=== PATIENT | male | born 1960 | race Caucasian/White ===

== ENCOUNTER 2018-04-20 12:02 | Inpatient (IN) | payer BC ==
[2018-04-20] MEDS ORDERED: ASPIRIN 81 MG PO STA (12:42)
[2018-04-20] MEDS ORDERED: SODIUM CHLORIDE 0.9% 1,000 ML IV STA (12:42)
--- NOTE | 2018-04-20 12:48 | ED ---
General Adult HPI - General Chief complaint: Arrhythmia/Palpitations Stated complaint: A-Fib Time Seen by Provider: 04/20/18 12:34 Source: patient, RN notes reviewed Mode of arrival: wheelchair Limitations: no limitations - History of Present Illness Initial comments: Patient is a pleasant 57-year-old male presenting to the emergency Department with limitations. Patient does have a history of similar symptoms previously associated with atrial fibrillation. Patient states it is been several years since he has had atrial fibrillation. Patient does have previous ablation. Patient is on antihypertensive medications however is not on any anticoagulation. No chest discomfort. Patient has had associated lightheadedness. - Related Data Home Medications Medication Instructions Recorded Confirmed Citalopram Hydrobromide 20 mg PO DAILY 04/20/18 04/20/18 [Citalopram HBr] Hydrochlorothiazide 12.5 mg PO DAILY 04/20/18 04/20/18 Meloxicam 15 mg PO DAILY 04/20/18 04/20/18 amLODIPine BESYLATE/BENAZEPRIL 1 cap PO DAILY 04/20/18 04/20/18 [amLODIPine BESYLATE/BENAZEPRIL 5-10 mg] Allergies Allergy/AdvReac Type Severity Reaction Status Date / Time No Known Allergies Allergy Verified 04/20/18 12:39 Review of Systems ROS Statement: Those systems with pertinent positive or pertinent negative responses have been documented in the HPI. ROS Other: All systems not noted in ROS Statement are negative. Constitutional: Denies: fever Eyes: Denies: eye pain ENT: Denies: ear pain Respiratory: Denies: cough Cardiovascular: Reports: palpitations. Denies: chest pain Endocrine: Denies: fatigue Gastrointestinal: Denies: abdominal pain Genitourinary: Denies: dysuria Musculoskeletal: Denies: back pain Skin: Denies: rash Neurological: Denies: weakness Past Medical History Past Medical History: Atrial Fibrillation, Hypertension History of Any Multi-Drug Resistant Organisms: None Reported Past Surgical History: Appendectomy, Heart Catheterization Additional Past Surgical History / Comment(s): dami knee, right shoulder, left ankle Past Psychological History: No Psychological Hx Reported Smoking Status: Never smoker Past Alcohol Use History: Occasional Past Drug Use History: None Reported General Exam Limitations: no limitations General appearance: alert, in no apparent distress Head exam: Present: atraumatic Eye exam: Present: normal appearance, PERRL ENT exam: Present: normal oropharynx Neck exam: Present: normal inspection Respiratory exam: Present: normal lung sounds bilaterally Cardiovascular Exam: Present: irregular rhythm Expanded Peripheral pulses: 2+: Radial (R), Radial (L), Dorsalis Pedis (R), Dorsalis Pedis (L) GI/Abdominal exam: Present: soft. Absent: tenderness Extremities exam: Present: normal inspection. Absent: pedal edema, calf tenderness Neurological exam: Present: alert Psychiatric exam: Present: normal affect, normal mood Skin exam: Present: normal color Course Vital Signs 04/20/18 04/20/18 04/20/18 12:09 12:45 13:44 Temperature 98.1 F Pulse Rate 85 103 H 80 Respiratory 18 18 18 Rate Blood Pressure 103/54 125/70 110/65 O2 Sat by Pulse 96 98 99 Oximetry EKG Findings - EKG Comments: EKG Findings:: A. fib with RVR, rate 107. QRS 86. QT 292. QTC 39. Normal axis. Normal QRS. No acute ST change. Medical Decision Making - Medical Decision Making Patient reevaluated and resting comfortably in bed. Patient does feel somewhat better. Heart rate has improved to 85 however remains in atrial fibrillation. Case was discussed in detail with Dr. Gallo, covering for Dr. Montoya, who will admit for Dr. Ramirez. - Lab Data Result diagrams: 04/20/18 12:40 04/20/18 12:40 Lab Results 04/20/18 04/20/18 04/20/18 Range/Units 12:40 12:40 12:40 WBC 14.1 H (3.8-10.6) k/uL RBC 4.83 (4.30-5.90) m/uL Hgb 15.3 (13.0-17.5) gm/dL Hct 44.1 (39.0-53.0) % MCV 91.2 (80.0-100.0) fL MCH 31.8 (25.0-35.0) pg MCHC 34.8 (31.0-37.0) g/dL RDW 13.0 (11.5-15.5) % Plt Count 240 (150-450) k/uL Neutrophils % 81 % Lymphocytes % 12 % Monocytes % 5 % Eosinophils % 1 % Basophils % 0 % Neutrophils # 11.3 H (1.3-7.7) k/uL Lymphocytes # 1.6 (1.0-4.8) k/uL Monocytes # 0.8 (0-1.0) k/uL Eosinophils # 0.1 (0-0.7) k/uL Basophils # 0.1 (0-0.2) k/uL PT (9.0-12.0) sec INR (<1.2) APTT (22.0-30.0) sec Sodium 138 (137-145) mmol/L Potassium 5.1 (3.5-5.1) mmol/L Chloride 107 (98-107) mmol/L Carbon Dioxide 20 L (22-30) mmol/L Anion Gap 11 mmol/L BUN 28 H (9-20) mg/dL Creatinine 1.28 H (0.66-1.25) mg/dL Est GFR (CKD-EPI)AfAm 72 (>60 ml/min/1.73 sqM) Est GFR (CKD-EPI)NonAf 63 (>60 ml/min/1.73 sqM) Glucose 94 (74-99) mg/dL Calcium 9.9 (8.4-10.2) mg/dL Magnesium 1.8 (1.6-2.3) mg/dL Total Bilirubin 0.6 (0.2-1.3) mg/dL AST 24 (17-59) U/L ALT 32 (21-72) U/L Alkaline Phosphatase 68 (38-126) U/L Total Creatine Kinase 41 L (55-170) U/L CK-MB (CK-2) 1.0 (0.0-2.4) ng/mL CK-MB (CK-2) Rel Index 2.4 Troponin I 0.017 (0.000-0.034) ng/mL Total Protein 7.2 (6.3-8.2) g/dL Albumin 4.5 (3.5-5.0) g/dL TSH 3.120 (0.465-4.680) mIU/L 04/20/18 Range/Units 12:40 WBC (3.8-10.6) k/uL RBC (4.30-5.90) m/uL Hgb (13.0-17.5) gm/dL Hct (39.0-53.0) % MCV (80.0-100.0) fL MCH (25.0-35.0) pg MCHC (31.0-37.0) g/dL RDW (11.5-15.5) % Plt Count (150-450) k/uL Neutrophils % % Lymphocytes % % Monocytes % % Eosinophils % % Basophils % % Neutrophils # (1.3-7.7) k/uL Lymphocytes # (1.0-4.8) k/uL Monocytes # (0-1.0) k/uL Eosinophils # (0-0.7) k/uL Basophils # (0-0.2) k/uL PT 10.6 (9.0-12.0) sec INR 1.1 (<1.2) APTT 22.1 (22.0-30.0) sec Sodium (137-145) mmol/L Potassium (3.5-5.1) mmol/L Chloride (98-107) mmol/L Carbon Dioxide (22-30) mmol/L Anion Gap mmol/L BUN (9-20) mg/dL Creatinine (0.66-1.25) mg/dL Est GFR (CKD-EPI)AfAm (>60 ml/min/1.73 sqM) Est GFR (CKD-EPI)NonAf (>60 ml/min/1.73 sqM) Glucose (74-99) mg/dL Calcium (8.4-10.2) mg/dL Magnesium (1.6-2.3) mg/dL Total Bilirubin (0.2-1.3) mg/dL AST (17-59) U/L ALT (21-72) U/L Alkaline Phosphatase (38-126) U/L Total Creatine Kinase (55-170) U/L CK-MB (CK-2) (0.0-2.4) ng/mL CK-MB (CK-2) Rel Index Troponin I (0.000-0.034) ng/mL Total Protein (6.3-8.2) g/dL Albumin (3.5-5.0) g/dL TSH (0.465-4.680) mIU/L - Radiology Data Radiology results: image reviewed (Two-view chest x-ray shows some right paraTracheal soft tissue prominence.) Critical Care Time Critical Care Time: Yes Total Critical Care Time: 32 Disposition Clinical Impression: Atrial fibrillation with RVR Disposition: ADMITTED IP TO THIS HOSP Is patient prescribed a controlled substance at d/c from ED?: No Referrals: Angel Ramirez MD [Primary Care Provider] - 1-2 days Decision Time: 14:23
[2018-04-20 13:02] LABS: Basophils # (A) 0.1 k/uL (0-0.2); Basophils % (A) 0 %; Eosinophils # (A) 0.1 k/uL (0-0.7); Eosinophils % (A) 1 %; HCT 44.1 % (39.0-53.0); HGB 15.3 gm/dL (13.0-17.5); Lymphocytes # (A) 1.6 k/uL (1.0-4.8); Lymphocytes % (A) 12 %; MCH 31.8 pg (25.0-35.0); MCHC 34.8 g/dL (31.0-37.0); MCV 91.2 fL (80.0-100.0); Mean Platelet Volume 7.8; Monocytes # (A) 0.8 k/uL (0-1.0); Monocytes % (A) 5 %; Neutrophils # (A) 11.3 k/uL (1.3-7.7); Neutrophils % (A) 81 %; Platelet Count 240 k/uL (150-450); RBC 4.83 m/uL (4.30-5.90); WBC 14.1 k/uL (3.8-10.6)
[2018-04-20] MEDS: DILTIAZEM 50 MG in SODIUM CHLORIDE 0.9% 40 ML IV SCH ×2 (13:04→22:51)
[2018-04-20 13:07] LABS: Albumin 4.5 g/dL (3.5-5.0); Calcium 9.9 mg/dL (8.4-10.2); Magnesium 1.8 mg/dL (1.6-2.3); Potassium 5.1 mmol/L (3.5-5.1); Total Bilirubin 0.6 mg/dL (0.2-1.3); Total Protein 7.2 g/dL (6.3-8.2)
[2018-04-20 13:14] LABS: INR 1.1 (<1.2); Partial Thromboplastin Time 22.1 sec (22.0-30.0); Prothrombin Time 10.6 sec (9.0-12.0)
--- NOTE | 2018-04-20 13:23 | XR ---
EXAMINATION TYPE: XR chest 1V portable DATE OF EXAM: 04/20/2018 Comparison: None Clinical History: 57-year-old male dysrhythmia Findings: Heart upper limits of normal in size. Probably accentuated due to low lung volumes. Vascular markings are crowded. There is some right paratracheal soft tissue prominence that could relate to ectatic va sculature. No consolidation or pleural effusion. Impression: 1. Right paratracheal soft tissue prominence could relate to ectatic vasculature. Contrast-enhanced C T if clinically indicated. 2. Otherwise, there are hypoventilatory changes without acute process.
[2018-04-20 13:33] LABS: Troponin I 0.017 ng/mL (0.000-0.034)
[2018-04-20] MEDS ORDERED: NITROGLYCERIN SL TABS 0.4 MG TAB SUBLINGUAL PRN (14:24)
[2018-04-20] MEDS ORDERED: HEPARIN SODIUM,PORCINE 5,000 UNIT/ML 1 ML VIAL IV ONE (14:24)
[2018-04-20] MEDS ORDERED: HEPARIN SODIUM,PORCINE 5,000 UNIT/ML 1 ML VIAL IV PRN (14:24)
[2018-04-20] MEDS ORDERED: HEPARIN SOD,PORK IN 0.45% NACL 25,000 UNIT in 0.45% NACL 1 500ML.BAG IV SCH (14:30)
--- NOTE | 2018-04-20 18:38 | HP ---
HISTORY AND PHYSICAL CHIEF COMPLAINT: Palpitation. HISTORY OF PRESENT ILLNESS: This 57-year-old gentleman with a past history of atrial fibrillation, hypertension, history of cardiac catheterization and ablation, being followed by Dr. Ramirez in the outpatient setting, is not feeling well over the past several days. The patient had palpitations. The patient apparently took a bike ride which usually resolves the issue, but because of increasing palpitations and wooziness and tiredness and weakness, the patient came to [facility] and found to be in atrial fibrillation with fast ventricular rate. Patient was started on IV Cardizem and IV heparin, admitted for further evaluation and treatment. There is no history of fever, rigors. No history of headache, loss of consciousness, seizures. PAST MEDICAL HISTORY: Atrial fibrillation, hypertension, appendectomy. MEDICATIONS PRIOR TO ADMISSION: Include: 1. Amlodipine. 2. Benazepril 5/10 one p.o. daily. 3. Meloxicam 50 mg daily. 4. Hydrochlorothiazide 12.5 mg daily. 5. Celexa 20 mg daily. ALLERGIES: None. FAMILY HISTORY: History of cardiac arrest in the family. SOCIAL HISTORY: No history of smoking. No history of alcohol intake. REVIEW OF SYSTEMS: ENT: No diminished hearing, diminished vision. CARDIOVASCULAR: As mentioned earlier. RESPIRATORY: No cough or hemoptysis. GI: No nausea or vomiting. : No dysuria. NERVOUS: No numbness or weakness. ALLERGY/IMMUNOLOGY: No asthma or hay fever. MUSCULOSKELETAL: As mentioned earlier. HEMATOLOGY/ONCOLOGY: No history of anemia. ENDOCRINE: No history of diabetes, hypothyroidism. CONSTITUTIONAL: As mentioned earlier. DERMATOLOGY: Negative. RHEUMATOLOGY: Negative. PSYCHIATRY: As mentioned earlier. PHYSICAL EXAMINATION: Alert and oriented x3. Pulse 89, blood pressure 116/53, respirations 20, temperature 98 degrees, pulse ox 99% on 2L. HEENT: Conjunctivae normal. Oral mucosa moist. NECK: No jugular venous distention. No carotid bruits. No lymph node enlargement. CARDIOVASCULAR: S1, S2 irregular. No S3, S4. RESPIRATORY: Breath sounds diminished in the bases. No rhonchi. No crackles. ABDOMEN: Soft, nontender. No mass palpable. LEGS: No edema. No swelling. NERVOUS SYSTEM: Higher functions as mentioned earlier. Moves all 4 limbs. No focal motor or sensory deficits. LYMPHATIC: No lymphadenopathy in neck or axillae. SKIN: No ulcer, rash or bleeding. LABS: WBC 14.1 and creatinine is 1.28. ASSESSMENT: 1. Atrial fibrillation with fast ventricular rate, paroxysmal atrial fibrillation. 2. Increased creatinine with possibly acute renal failure, mild. 3. Increased WBC. RECOMMENDATION AND DISCUSSION: In this 57-year-old gentleman who presented with multiple complex medical issues, at this time I recommend to continue current medical management and symptomatic treatment. I recommend to continue with a Cardizem drip as well as IV heparin, hydration, repeat labs. Recommend a 2D echo with a Doppler in the morning. Cardiology evaluation and we will also resume the home medications as well. Cautious IV hydration has been recommended. Guarded prognosis. Further recommendations to follow. MMODL / IJN: [id number] /
[2018-04-20 20:00] LABS: Creatine Kinase MB 0.8 ng/mL (0.0-2.4); Troponin I 0.017 ng/mL (0.000-0.034)
[2018-04-20] MEDS: SODIUM CHLORIDE 0.9% 1,000 ML IV SCH (22:50)
[2018-04-21 01:38] LABS: Creatine Kinase 27 U/L (55-170)
[2018-04-21 01:50] LABS: Creatine Kinase MB 0.7 ng/mL (0.0-2.4); Troponin I <0.012 ng/mL (0.000-0.034)
[2018-04-21 02:46] LABS: Basophils # (A) 0.1 k/uL (0-0.2); Basophils % (A) 1 %; Eosinophils # (A) 0.3 k/uL (0-0.7); Eosinophils % (A) 5 %; HCT 38.7 % (39.0-53.0); HGB 13.6 gm/dL (13.0-17.5); Lymphocytes # (A) 2.6 k/uL (1.0-4.8); Lymphocytes % (A) 39 %; MCH 32.9 pg (25.0-35.0); MCV 94.1 fL (80.0-100.0); Mean Platelet Volume 7.8; Monocytes # (A) 0.5 k/uL (0-1.0); Monocytes % (A) 7 %; Neutrophils % (A) 46 %; Platelet Count 178 k/uL (150-450); RBC 4.11 m/uL (4.30-5.90); RDW 13.3 % (11.5-15.5); WBC 6.6 k/uL (3.8-10.6)
[2018-04-21 04:10] LABS: Anion Gap 8 mmol/L; Blood Urea Nitrogen 33 mg/dL (9-20); Calcium 8.9 mg/dL (8.4-10.2); Carbon Dioxide 23 mmol/L (22-30); Chloride 106 mmol/L (98-107); Cholesterol 127 mg/dL (<200); Glucose 85 mg/dL (74-99); HDL Cholesterol 33 mg/dL (40-60); LDL Cholesterol,Calculated 76 mg/dL (0-99); Potassium 4.7 mmol/L (3.5-5.1); Sodium 137 mmol/L (137-145); Triglycerides 89 mg/dL (<150)
[2018-04-21] MEDS: CITALOPRAM HYDROBROMIDE 20 MG TAB PO SCH ×2 (07:53→07:56)
[2018-04-21] MEDS: SODIUM CHLORIDE 0.9% 1,000 ML IV SCH (07:59)
[2018-04-21 08:27] VITALS: PULSE 64
[2018-04-21] MEDS ORDERED: ASPIRIN 325 MG TAB PO SCH (09:00)
[2018-04-21] MEDS ORDERED: MELOXICAM 7.5 MG TAB PO SCH (09:00)
--- NOTE | 2018-04-21 09:07 | P.CRDCN ---
History of Present Illness Consult date: 04/21/18 Chief complaint: Palpitations in the chest History of present illness: This is a pleasant 57-year-old gentleman who used to be seen in the past by Dr. Green in with a past medical history significant for paroxysmal atrial fibrillation as well as hypertension presented to the hospital complaining of heart racing and fluttering. The patient does have history of paroxysmal atrial fibrillation and he underwent an ablation back in 2009 according to him was unsuccessful. Normally he feels his heart once he goes into atrial fibrillation. He was in his usual state of health yesterday when he felt some significant right in the chest. He was feeling heart racing and fluttering. Also he developed some dizziness and lightheadedness. No chest pain or chest discomfort and no shortness of breath and no syncope. He presented to the emergency room where he was found to be in atrial fibrillation with RVR and started on Cardizem drip. He continues to be in atrial fibrillation with heart rate around 90 bpm. For some reason the patient was not taking any oral anticoagulation at home and when I ask him he stated that he stopped taking it because he did not feel good on it. The patient expressed the wishes that he would like to be discharged home. I am going to DC the heparin and start him on oral anticoagulation. Start the patient on metoprolol at 12.5 mg by mouth twice a day. If the patient would like to go home and I will see him in the office as an outpatient then I would consider doing a ARNIE cardioversion if he continues to be in atrial fibrillation at that point. Past Medical History Past Medical History: Atrial Fibrillation, Hypertension History of Any Multi-Drug Resistant Organisms: None Reported Past Surgical History: Appendectomy, Heart Catheterization Additional Past Surgical History / Comment(s): dami knee, right shoulder, left ankle Past Psychological History: No Psychological Hx Reported Smoking Status: Never smoker Past Alcohol Use History: Occasional Past Drug Use History: None Reported - Past Family History Father Additional Family Medical History / Comment(s): cardiac arrest Medications and Allergies Home Medications Medication Instructions Recorded Confirmed Type Citalopram Hydrobromide 20 mg PO DAILY 04/20/18 04/20/18 History [Citalopram HBr] Hydrochlorothiazide 12.5 mg PO DAILY 04/20/18 04/20/18 History Meloxicam 15 mg PO DAILY 04/20/18 04/20/18 History amLODIPine BESYLATE/BENAZEPRIL 1 cap PO DAILY 04/20/18 04/20/18 History [amLODIPine BESYLATE/BENAZEPRIL 5-10 mg] Allergies Allergy/AdvReac Type Severity Reaction Status Date / Time No Known Allergies Allergy Verified 04/20/18 12:39 Physical Exam Vitals: Vital Signs Temp Pulse Pulse Resp BP BP Pulse Ox 04/21/18 07:50 97.7 F 64 18 136/70 95 04/21/18 04:00 97.9 F 70 14 116/76 99 04/21/18 00:00 70 16 04/20/18 20:00 70 16 04/20/18 19:44 97.5 F L 70 16 123/60 97 04/20/18 16:30 98.0 F 89 20 116/56 99 04/20/18 16:21 96.9 F L 65 18 136/69 98 04/20/18 16:00 88 20 115/75 98 04/20/18 15:00 77 20 121/66 99 04/20/18 13:44 80 18 110/65 99 04/20/18 12:45 103 H 18 125/70 98 04/20/18 12:09 98.1 F 85 18 103/54 96 Intake and Output 04/20/18 04/21/18 04/21/18 22:59 06:59 14:59 Intake Total 284.917 425 236 Balance 284.917 425 236 Intake: Intake, IV Titration 48.917 425 Amount Diltiazem 50 mg In Sodium 48.917 Chloride 0.9% 40 ml @ 5 MG/HR 5 mls/hr IV .Q10H AB Rx#:[id number] Heparin Sod,Pork in 0.45% 50 NaCl 25,000 unit In 0.45 % NaCl 1 500ml.bag @ 11 UNITS/KG/HR 19.95 mls/hr IV .Q24H AB Rx#: [id number] Sodium Chloride 0.9% 1, 375 000 ml @ 75 mls/hr IV . [id number] AB Rx#:[id number] Oral 236 236 Other: # Voids 1 Weight 93.5 kg - Constitutional General appearance: no acute distress - Respiratory Respiratory: bilateral: CTA - Cardiovascular Rhythm: irregularly irregular Heart sounds: normal: S1, S2 Results 04/21/18 02:30 04/21/18 02:34 Cardiac Enzymes 04/20/18 04/20/18 04/20/18 Range/Units 12:40 12:40 19:00 AST 24 (17-59) U/L CK-MB (CK-2) 1.0 0.8 (0.0-2.4) ng/mL Troponin I 0.017 0.017 (0.000-0.034) ng/mL 04/21/18 Range/Units 00:38 AST (17-59) U/L CK-MB (CK-2) 0.7 (0.0-2.4) ng/mL Troponin I <0.012 (0.000-0.034) ng/mL Coagulation 04/20/18 04/21/18 Range/Units 12:40 02:30 PT 10.6 (9.0-12.0) sec APTT 22.1 28.0 (22.0-30.0) sec Lipids 04/21/18 Range/Units 02:34 Triglycerides 89 (<150) mg/dL Cholesterol 127 (<200) mg/dL HDL Cholesterol 33 L (40-60) mg/dL CBC 04/20/18 04/21/18 Range/Units 12:40 02:30 WBC 14.1 H 6.6 (3.8-10.6) k/uL RBC 4.83 4.11 L (4.30-5.90) m/uL Hgb 15.3 13.6 (13.0-17.5) gm/dL Hct 44.1 38.7 L (39.0-53.0) % Plt Count 240 178 (150-450) k/uL Comprehensive Metabolic Panel 04/20/18 04/21/18 Range/Units 12:40 02:34 Sodium 138 137 (137-145) mmol/L Potassium 5.1 4.7 (3.5-5.1) mmol/L Chloride 107 106 (98-107) mmol/L Carbon Dioxide 20 L 23 (22-30) mmol/L BUN 28 H 33 H (9-20) mg/dL Creatinine 1.28 H 1.00 (0.66-1.25) mg/dL Glucose 94 85 (74-99) mg/dL Calcium 9.9 8.9 (8.4-10.2) mg/dL AST 24 (17-59) U/L ALT 32 (21-72) U/L Alkaline Phosphatase 68 (38-126) U/L Total Protein 7.2 (6.3-8.2) g/dL Albumin 4.5 (3.5-5.0) g/dL Current Medications Generic Name Dose Route Start Last Admin Trade Name Freq PRN Reason Stop Dose Admin Apixaban 5 mg 04/21/18 21:00 Eliquis PO BID [facility] Citalopram Hydrobromide 20 mg 04/21/18 09:00 04/21/18 07:56 Celexa PO Not Given DAILY [facility] Heparin Sodium (Porcine) 0 unit 04/20/18 14:24 Heparin IV Q6HR PRN Low PTT Protocol Diltiazem HCl 50 mg/ Sodium 50 mls @ 5 mls/hr 04/20/18 13:00 04/20/18 22:51 Chloride IV 5 mg/hr .Q10H AB 5 mls/hr Administration 5 MG/HR Heparin Sodium/Sodium Chloride 500 mls @ 19.95 mls/hr 04/20/18 14:30 15:02 25,000 unit/ Sodium Chloride IV 11 units/kg/hr .Q24H AB 19.95 mls/hr Administration Protocol 11 UNITS/KG/HR Sodium Chloride 1,000 mls @ 75 mls/hr 04/20/18 18:00 04/21/18 07:59 Saline 0.9% IV 75 mls/hr .[id number] AB Administration Meloxicam 15 mg 04/21/18 09:00 04/21/18 07:54 Mobic PO 15 mg DAILY AB Administration Metoprolol Tartrate 12.5 mg 04/21/18 21:00 Lopressor PO BID AB Nitroglycerin 0.4 mg 04/20/18 14:24 Nitrostat SUBLINGUAL Q5M PRN Chest Pain Intake and Output 04/20/18 04/21/18 04/21/18 22:59 06:59 14:59 Intake Total 284.917 425 236 Balance 284.917 425 236 Intake: Intake, IV Titration 48.917 425 Amount Diltiazem 50 mg In Sodium 48.917 Chloride 0.9% 40 ml @ 5 MG/HR 5 mls/hr IV .Q10H AB Rx#:[id number] Heparin Sod,Pork in 0.45% 50 NaCl 25,000 unit In 0.45 % NaCl 1 500ml.bag @ 11 UNITS/KG/HR 19.95 mls/hr IV .Q24H AB Rx#: [id number] Sodium Chloride 0.9% 1, 375 000 ml @ 75 mls/hr IV . [id number] AB Rx#:[id number] Oral 236 236 Other: # Voids 1 Weight 93.5 kg 04/21/18 02:30 04/21/18 02:34 Assessment and Plan Assessment: Assessment #1 paroxysmal atrial fibrillation #2 hypertension Plan #1 start the patient on oral beta kelly #2 start the patient on oral anticoagulation #3 DC heparin #4 DC aspirin #5 follow-up with the patient Thank you for allowing us participate in his care
[2018-04-21] MEDS: DILTIAZEM 50 MG in SODIUM CHLORIDE 0.9% 40 ML IV SCH (09:23)
--- NOTE | 2018-04-21 09:59 | ECHOF ---
Referral Reason:Stroke MEASUREMENTS -------- HEIGHT: 180.3 cm WEIGHT: 93.4 kg BP: 116/76 RVIDd: 4.1 cm (< 3.3) IVSd: 1.2 cm (0.6 - 1.1) LVIDd: 3.6 cm (3.9 - 5.3) LVPWd: 1.4 cm (0.6 - 1.1) IVSs: 1.9 cm LVIDs: 2.5 cm LVPWs: 1.6 cm LAESV Index (A-L): 36.89 ml/m Ao Diam: 3.1 cm (2.0 - 3.7) AV Cusp: 2.0 cm (1.5 - 2.6) LA Diam: 4.7 cm (2.7 - 3.8) RAP: 5.00 mmHg RVSP: 38.76 mmHg FINDINGS -------- Atrial fibrillation. This was a technically good study. The left ventricular size is normal. There is mild concentric left ventricular hypertrophy. Overa ll left ventricular systolic function is normal with, an EF between 60 - 65 %. The right ventricle is moderately enlarged. LA is moderately dilated 34-39 ml/m2 RA appears enlarged. Aortic valve is trileaflet and is mildly thickened. The mitral valve leaflets are mildly thickened. Mild mitral regurgitation is present. Mild tricuspid regurgitation present. There is mild pulmonary hypertension. The right ventricular systolic pressure, as measured by Doppler, is 38.76mmHg. Trace/mild (physiologic) pulmonic regurgitation. The aortic root size is normal. Normal inferior vena cava with normal inspiratory collapse consistent with estimated right atrial pre ssure of 5 mmHg. The pericardium is normal. CONCLUSIONS -------- 1. Atrial fibrillation. 2. This was a technically good study. 3. The left ventricular size is normal. 4. There is mild concentric left ventricular hypertrophy. 5. Overall left ventricular systolic function is normal with, an EF between 60 - 65 %. 6. The right ventricle is moderately enlarged. 7. LA is moderately dilated 34-39 ml/m2 8. RA appears enlarged. 9. Aortic valve is trileaflet and is mildly thickened. 10. The mitral valve leaflets are mildly thickened. 11. Mild mitral regurgitation is present. 12. Mild tricuspid regurgitation present. 13. There is mild pulmonary hypertension. 14. The right ventricular systolic pressure, as measured by Doppler, is 38.76mmHg. 15. Trace/mild (physiologic) pulmonic regurgitation. 16. The aortic root size is normal. 17. Normal inferior vena cava with normal inspiratory collapse consistent with estimated right atrial pressure of 5 mmHg. 18. The pericardium is normal. DENTAL OFFICE ASSISTANT: Jalyn Ramirez RDCS
[2018-04-21 11:25] VITALS: BP 125/77; RESP 16; TEMP 97.9
--- NOTE | 2018-04-21 18:48 | DS ---
DISCHARGE SUMMARY FINAL DIAGNOSES: 1. Atrial fibrillation with fast ventricular rate, possibly paroxysmal. 2. Increased creatinine with possible acute renal failure, mild, improved. 3. Increased white count. DISCHARGE DISPOSITION: The patient will be discharged in stable condition with guarded prognosis. HISTORY OF PRESENT ILLNESS: This 57-year-old gentleman with a past medical history of multiple medical problems was admitted with palpitations fast ventricular rate, treated with Cardizem. Patient improved significantly. Cardiology saw the patient, recommended outpatient followup. On exam, vitals are stable. CARDIOVASCULAR SYSTEM: S1, S2 muffled. ABDOMEN: Soft. NERVOUS SYSTEM: No focal deficit. DISCHARGE ADVICE AND MEDICATIONS: 1. Discharge diet is cardiac. 2. Activity limited until followup. 3. Follow up with Dr. Ramirez in 2 to 3 days. 4. Follow up with Dr. Peterson as recommended. 5. Celexa 20 mg daily. 6. Meloxicam 15 mg daily. 7. Eliquis 5 mg p.o. b.i.d. 8. Lopressor 12.5 mg b.i.d. Once again, the patient will be discharged in stable condition with guarded prognosis. MMODL / IJN: [id number] /
[2018-04-21] MEDS ORDERED: APIXABAN 5 MG TAB PO SCH (21:00)
[2018-04-21] MEDS ORDERED: METOPROLOL TARTRATE 12.5 MG TAB PO SCH (21:00)
== END 2018-04-21 12:39 | disposition home or self-care (01) | DRG 309 ==
LOC: EC 12:02 → 6SEL 14:37
PROVIDERS: ADMIT Internal Medicine; ATTEND Internal Medicine
DX: I48.0 Paroxysmal atrial fibrillation (principal); N17.9 Acute kidney failure, unspecified; I10 Essential (primary) hypertension; D72.829 Elevated white blood cell count, unspecified; Z79.899 Other long term (current) drug therapy; Z82.41 Family history of sudden cardiac death
CPT/HCPCS: 36415; 71045; 80048; 80053; 80061; 82550; 82553; 83735; 84443; 84484; 85025; 85610; 85730; 93005; 93306; 96361; 96365; 96376; 99285

== ENCOUNTER → 2018-07-09 | Outpatient (CLI) | payer BC ==
[2018-07-09 08:41] LABS: HCT 49.4 % (39.0-53.0); HGB 16.6 gm/dL (13.0-17.5); MCH 31.2 pg (25.0-35.0); MCHC 33.6 g/dL (31.0-37.0); Mean Platelet Volume 7.5; Platelet Count 187 k/uL (150-450); RBC 5.31 m/uL (4.30-5.90); RDW 13.1 % (11.5-15.5); WBC 6.5 k/uL (3.8-10.6)
[2018-07-09 08:56] LABS: Anion Gap 7 mmol/L; Blood Urea Nitrogen 23 mg/dL (9-20); Carbon Dioxide 29 mmol/L (22-30); Chloride 104 mmol/L (98-107); Sodium 140 mmol/L (137-145)
== END ==
LOC: LABPAT 07:52
PROVIDERS: ATTEND Internal Medicine Interventional Cardiology
DX: Z01.812 Encounter for preprocedural laboratory examination (principal); I48.0 Paroxysmal atrial fibrillation; I10 Essential (primary) hypertension; R00.2 Palpitations
CPT/HCPCS: 36415; 80051; 82565; 84520; 85027

== ENCOUNTER 2018-07-16 10:42 | Day surgery (SDC) | payer BC ==
[2018-07-09 15:09] VITALS: BMI 29.5
[~2018-07-16 10:42] MED LIST: SODIUM CHLORIDE 0.9% 1,000 ML IV SCH
[2018-07-16 11:05] VITALS: TEMP 98
[2018-07-16] MEDS ORDERED: PROPOFOL 10 MG/ML 20 ML VIAL IV ONE (12:10)
[2018-07-16] MEDS ORDERED: LIDOCAINE 1% INJ 10MG/ML (20 ML MDV) ONE (12:10)
--- NOTE | 2018-07-16 13:06 | ECHOT ---
TRANSESOPHAGEAL ECHOCARDIOGRAM DATE OF SERVICE: 07/16/2018 PERFORMING PHYSICIAN: Guillermo Peterson MD, Router Operator Radial. PROCEDURE PERFORMED: Transesophageal echocardiogram. INDICATION: This is a pleasant 57-year-old gentleman with paroxysmal atrial fibrillation who was scheduled today to undergo a cardioversion. The ARNIE is to rule out any intracardiac thrombus. COMPLICATION: None. SEDATION: Deep sedation was performed with propofol and anesthesiologist in the room. PROCEDURE DESCRIPTION: After obtaining an informed consent, explaining the procedure, benefits, risks, complications and alternatives, the patient was brought to the transesophageal echocardiogram suite. A pulse oximetry and heart rate monitors were attached to the patient prior to the procedure. The patient's throat was sprayed using lidocaine locally. Following that, the patient was turned into left lateral position. A bite guard was placed and the patient was then sedated with the above doses of Versed and fentanyl in divided doses. Following that, the transesophageal echocardiogram probe was advanced through the bite guard into the mid esophagus where 2-D echocardiogram images as well as color Doppler images of various cardiac structures were obtained. We evaluated the interatrial septum using 2-D echocardiogram, color Doppler, and contrast study. The procedure was completed. There were no complications. FINDINGS: The left ventricular dimension and systolic function appeared to be within normal limits with EF around 50%. The right ventricle appeared to be dilated. The left atrium and right atrium are dilated. The left atrial appendage appeared to be free from any thrombus. The interatrial septum appeared to be intact. The aortic valve is trileaflet valve without stenosis with mild insufficiency. The mitral valve is mildly thickened with mild MR. Normal tricuspid. There is moderate tricuspid regurgitation was seen. CONCLUSION: 1. Normal left atrial appendage without any evidence of thrombus. 2. Intact interatrial septum without any evidence of shunt. 3. Normal left ventricular dimension and systolic function. 4. Dilated right ventricle with normal function. 5. Biatrial enlargement. 6. Trileaflet aortic valve without stenosis with mild insufficiency. 7. Mild thickened mitral valve leaflets with mild mitral regurgitation. 8. Moderate tricuspid regurgitation. 9. No evidence of pericardial effusion. MMODL / IJN: [id number] /
--- NOTE | 2018-07-16 13:42 | CE ---
CARDIAC ELECTROPHYSIOLOGY REPORT DATE OF SERVICE: July 16, 2018 PERFORMING PHYSICIAN: Guillermo Peterson MD. PROCEDURE PERFORMED: Cardioversion. INDICATION: This is a pleasant 57-year-old gentleman with paroxysmal atrial fibrillation who was scheduled today to undergo a cardioversion. COMPLICATION: None. LEVEL OF SEDATION: Deep sedation was performed using propofol. PROCEDURE DESCRIPTION: After ARNIE was performed and intracardiac thrombus was ruled out, we proceeded with a cardioversion. The patient converted from the atrial fibrillation to normal sinus mechanism using joules on first attempt. CONCLUSION: Successful cardioversion of atrial fibrillation to normal sinus mechanism using joules on first attempt. MMODL / IJN: [id number] /
[2018-07-16 14:14] VITALS: BP 119/74; PULSE 50; RESP 18
== END 2018-07-16 14:05 | disposition home or self-care (01) ==
LOC: CATHCVL 10:42
PROVIDERS: ATTEND Internal Medicine Interventional Cardiology
DX: I48.0 Paroxysmal atrial fibrillation (principal); I08.3 Combined rheumatic disorders of mitral, aortic and tricuspid valves; I11.9 Hypertensive heart disease without heart failure; G47.33 Obstructive sleep apnea (adult) (pediatric); Z79.1 Long term (current) use of non-steroidal anti-inflammatories (NSAID); Z79.02 Long term (current) use of antithrombotics/antiplatelets; Z79.899 Other long term (current) drug therapy
CPT/HCPCS: 93312; 93320; 93325; 92960; J2001; J2704

== ENCOUNTER → 2019-05-11 | Outpatient (CLI) | payer BC ==
--- NOTE | 2019-05-20 16:55 | EM ---
EVENT MONITOR This is a 58-year-old male patient who underwent event monitor. Event monitor showed sinus mechanism with very frequent runs of short non-sustained atrial tachycardia. No significant pauses. Very occasional PVCs. CLIFTON / HERNANN: [id number] /
== END | disposition home or self-care (01) ==
LOC: RADECHMAIN 11:48
PROVIDERS: ATTEND Internal Medicine Cardiovascular Disease
DX: I47.1 Supraventricular tachycardia (principal); I48.91 Unspecified atrial fibrillation
CPT/HCPCS: 93270

== ENCOUNTER 2020-09-17 13:30 | Observation (INO) | payer BC ==
[2020-09-17] MEDS ORDERED: MORPHINE SULFATE 4 MG/ML SYRINGE IV STA (13:31)
--- NOTE | 2020-09-17 13:40 | ED ---
General Adult HPI - General Chief complaint: Chest Pain Stated complaint: Chest Pain Time Seen by Provider: 09/17/20 13:31 Source: patient, EMS, RN notes reviewed, old records reviewed Mode of arrival: EMS Limitations: no limitations - History of Present Illness Initial comments: 60-year-old male presenting with severe substernal chest pain which began approximately one hour prior to arrival. Patient's pain is described as a sharp pain. His pain began at rest. Patient is in severe. History is somewhat limited. He has a history of atrial fibrillation but is not on anticoagulation. He reports no other medical problems. He is a nonsmoker. - Related Data Home Medications Medication Instructions Recorded Confirmed Meloxicam 15 mg PO QAM 04/20/18 07/16/18 Apixaban [Eliquis] 2.5 mg PO BID 07/09/18 07/16/18 Previous Rx's Medication Instructions Recorded Diltiazem Cd [Cardizem Cd] 120 mg PO Q24HR #90 cap 07/16/18 Allergies Allergy/AdvReac Type Severity Reaction Status Date / Time No Known Allergies Allergy Verified 07/09/18 15:02 Review of Systems ROS Statement: Those systems with pertinent positive or pertinent negative responses have been documented in the HPI. ROS Other: All systems not noted in ROS Statement are negative. Past Medical History Past Medical History: Atrial Fibrillation, Hypertension History of Any Multi-Drug Resistant Organisms: None Reported Past Surgical History: Appendectomy, Heart Catheterization Additional Past Surgical History / Comment(s): dami knee, right shoulder, left ankle Past Psychological History: No Psychological Hx Reported Smoking Status: Former smoker Past Alcohol Use History: Occasional Past Drug Use History: None Reported - Past Family History Father Additional Family Medical History / Comment(s): cardiac arrest General Exam Limitations: no limitations General appearance: alert, in distress Head exam: Present: atraumatic, normocephalic Eye exam: Present: normal appearance, PERRL ENT exam: Present: normal exam Neck exam: Present: normal inspection. Absent: tenderness, meningismus Respiratory exam: Present: normal lung sounds bilaterally. Absent: respiratory distress, wheezes Cardiovascular Exam: Present: regular rate, irregular rhythm GI/Abdominal exam: Present: soft. Absent: distended, tenderness, guarding Extremities exam: Present: normal capillary refill, other (Bilateral radial pulses, 2+ and symmetric, bilateral posterior tibial pulses 2+ and symmetric) Neurological exam: Present: alert, oriented X3 Psychiatric exam: Present: anxious Skin exam: Present: warm, diaphoretic Course Vital Signs 09/17/20 09/17/20 09/17/20 13:30 13:52 15:54 Temperature 97 F L Pulse Rate 74 69 56 L Respiratory 18 18 18 Rate Blood Pressure 125/90 125/94 125/86 O2 Sat by Pulse 95 97 99 Oximetry - Reevaluation(s) Reevaluation #1: 09/17/20 13:37 Patient given aspirin nitroglycerin by EMS prior to arrival EKG Findings - EKG Comments: EKG Findings:: EKG: Atrial fibrillation, rate 74, QRS duration 90, QTC 503, no ST segment elevation. Repeat EKG at 1338, H fibrillation, prolonged QT, no ST segment elevation, rate of 86, QRS duration 94, QTC 490, repeat EKG at 1344, atrial fibrillation, rate is 69, QRS duration 98, QTC 445, no ST segment elevation. Medical Decision Making - Medical Decision Making 60-year-old male presenting with severe substernal chest pain. Patient is diaphoretic and appears ill upon arrival. Workup initiated, EKG showing A. fib without ischemic changes. Patient did go for CT angiography to evaluate the aorta, this shows a 4 cm thoracic ascending aneurysm with no dissection, no acute findings. Ultrasound of the gallbladder negative for acute cholecystitis or any acute findings. Chest x-rays negative. Patient has a normal CBC, normal CMP. He has a negative troponin in the emergency department. He's given aspirin by EMS, he started on heparin. He is chest pain-free at the time my reevaluation. I am concerned for ACS in this patient. He will be admitted to Dr. Sunshine with cardiology on consultation. - Lab Data Result diagrams: 09/17/20 13:31 09/17/20 13:31 Lab Results 09/17/20 09/17/20 09/17/20 Range/Units 13:31 13:31 13:31 WBC 9.8 (3.8-10.6) k/uL RBC 5.12 (4.30-5.90) m/uL Hgb 16.5 (13.0-17.5) gm/dL Hct 47.4 (39.0-53.0) % MCV 92.4 (80.0-100.0) fL MCH 32.2 (25.0-35.0) pg MCHC 34.9 (31.0-37.0) g/dL RDW 12.5 (11.5-15.5) % Plt Count 246 (150-450) k/uL MPV 8.0 Neutrophils % 58 % Lymphocytes % 30 % Monocytes % 5 % Eosinophils % 5 % Basophils % 1 % Neutrophils # 5.7 (1.3-7.7) k/uL Lymphocytes # 2.9 (1.0-4.8) k/uL Monocytes # 0.4 (0-1.0) k/uL Eosinophils # 0.4 (0-0.7) k/uL Basophils # 0.1 (0-0.2) k/uL PT 10.5 (9.0-12.0) sec INR 1.0 (<1.2) APTT 21.2 L (22.0-30.0) sec Sodium 138 (137-145) mmol/L Potassium 3.8 (3.5-5.1) mmol/L Chloride 103 (98-107) mmol/L Carbon Dioxide 26 (22-30) mmol/L Anion Gap 9 mmol/L BUN 19 (9-20) mg/dL Creatinine 1.03 (0.66-1.25) mg/dL Est GFR (CKD-EPI)AfAm >90 (>60 ml/min/1.73 sqM) Est GFR (CKD-EPI)NonAf 80 (>60 ml/min/1.73 sqM) Glucose 220 H (74-99) mg/dL Calcium 9.2 (8.4-10.2) mg/dL Magnesium 1.8 (1.6-2.3) mg/dL Total Bilirubin 0.7 (0.2-1.3) mg/dL AST 26 (17-59) U/L ALT 25 (4-49) U/L Alkaline Phosphatase 85 (38-126) U/L Troponin I (0.000-0.034) ng/mL NT-Pro-B Natriuret Pep pg/mL Total Protein 7.3 (6.3-8.2) g/dL Albumin 4.3 (3.5-5.0) g/dL Lipase 152 (23-300) U/L 09/17/20 09/17/20 09/17/20 Range/Units 13:31 13:31 Unknown WBC (3.8-10.6) k/uL RBC (4.30-5.90) m/uL Hgb (13.0-17.5) gm/dL Hct (39.0-53.0) % MCV (80.0-100.0) fL MCH (25.0-35.0) pg MCHC (31.0-37.0) g/dL RDW (11.5-15.5) % Plt Count (150-450) k/uL MPV Neutrophils % % Lymphocytes % % Monocytes % % Eosinophils % % Basophils % % Neutrophils # (1.3-7.7) k/uL Lymphocytes # (1.0-4.8) k/uL Monocytes # (0-1.0) k/uL Eosinophils # (0-0.7) k/uL Basophils # (0-0.2) k/uL PT (9.0-12.0) sec INR (<1.2) APTT (22.0-30.0) sec Sodium (137-145) mmol/L Potassium (3.5-5.1) mmol/L Chloride (98-107) mmol/L Carbon Dioxide (22-30) mmol/L Anion Gap mmol/L BUN (9-20) mg/dL Creatinine (0.66-1.25) mg/dL Est GFR (CKD-EPI)AfAm (>60 ml/min/1.73 sqM) Est GFR (CKD-EPI)NonAf (>60 ml/min/1.73 sqM) Glucose (74-99) mg/dL Calcium (8.4-10.2) mg/dL Magnesium (1.6-2.3) mg/dL Total Bilirubin (0.2-1.3) mg/dL AST (17-59) U/L ALT (4-49) U/L Alkaline Phosphatase (38-126) U/L Troponin I <0.012 0.013 (0.000-0.034) ng/mL NT-Pro-B Natriuret Pep 383 pg/mL Total Protein (6.3-8.2) g/dL Albumin (3.5-5.0) g/dL Lipase (23-300) U/L Critical Care Time Critical Care Time: Yes Total Critical Care Time: 35 Disposition Clinical Impression: Unstable angina pectoris Disposition: ADMITTED IP TO THIS [facility] Condition: Stable Is patient prescribed a controlled substance at d/c from ED?: No Referrals: Angel Ramirez MD [Primary Care Provider] - 1-2 days Decision to Admit Reason: Admit from EC Decision Date: 09/17/20 Decision Time: 16:06
[2020-09-17 13:49] LABS: Basophils # (A) 0.1 k/uL (0-0.2); Basophils % (A) 1 %; Eosinophils # (A) 0.4 k/uL (0-0.7); Eosinophils % (A) 5 %; HCT 47.4 % (39.0-53.0); HGB 16.5 gm/dL (13.0-17.5); Lymphocytes # (A) 2.9 k/uL (1.0-4.8); Lymphocytes % (A) 30 %; MCH 32.2 pg (25.0-35.0); MCHC 34.9 g/dL (31.0-37.0); MCV 92.4 fL (80.0-100.0); Monocytes # (A) 0.4 k/uL (0-1.0); Monocytes % (A) 5 %; Neutrophils # (A) 5.7 k/uL (1.3-7.7); Neutrophils % (A) 58 %; Platelet Count 246 k/uL (150-450); RBC 5.12 m/uL (4.30-5.90); RDW 12.5 % (11.5-15.5); WBC 9.8 k/uL (3.8-10.6)
[2020-09-17] MEDS ORDERED: MORPHINE SULFATE 4 MG/ML SYRINGE IVP STA (13:49)
[2020-09-17 14:01] LABS: ALT 25 U/L (4-49); AST 26 U/L (17-59); African American GFR (CKD) >90 (>60 ml/min/1.73 sqM); Albumin 4.3 g/dL (3.5-5.0); Alkaline Phosphatase 85 U/L (38-126); Anion Gap 9 mmol/L; Blood Urea Nitrogen 19 mg/dL (9-20); Calcium 9.2 mg/dL (8.4-10.2); Carbon Dioxide 26 mmol/L (22-30); Chloride 103 mmol/L (98-107); Glucose 220 mg/dL (74-99); Lipase 152 U/L (23-300); Magnesium 1.8 mg/dL (1.6-2.3); Non-African American GFR(CKD) 80 (>60 ml/min/1.73 sqM); Potassium 3.8 mmol/L (3.5-5.1); Sodium 138 mmol/L (137-145); Total Bilirubin 0.7 mg/dL (0.2-1.3); Total Protein 7.3 g/dL (6.3-8.2)
--- NOTE | 2020-09-17 14:04 | XR ---
EXAMINATION TYPE: XR chest 1V portable DATE OF EXAM: 09/17/2020 COMPARISON: Chest x-ray April 20, 2018 HISTORY: Chest and abdominal pain. TECHNIQUE: Single AP portable frontal upright view of the chest is obtained. FINDINGS: There is persistent low lung volumes and mild chronic parenchymal changes without suspicio us new focal air space opacity, pleural effusion, or pneumothorax seen bilaterally. The cardiac silho uette size remains mildly enlarged. Stable right paratracheal soft tissue fullness. Overlying EKG malorie ds again seen. The osseous structures are intact. IMPRESSION: Low lung volumes and cardiomegaly without new acute pulmonary process.
[2020-09-17 14:20] LABS: Prothrombin Time 10.5 sec (9.0-12.0)
[2020-09-17 14:33] LABS: Partial Thromboplastin Time 21.2 sec (22.0-30.0)
--- NOTE | 2020-09-17 14:35 | CT ---
EXAMINATION TYPE: CT angio thor/abd pel aorta DATE OF EXAM: 09/17/2020 COMPARISON: None HISTORY: Mid Chest pain today. CT DLP: 1389.9 mGycm CONTRAST: CTA thoracic and abdominal aorta with 3-D reconstruction is performed and with IV Contrast, patient i njected with 100 mL of Isovue 370. Contrast CTA of the thoracic and abdominal aorta was performed from the lung apex through the base of the pelvis. 3-D reconstruction imaging obtained at a separate workstation. CT Chest: THORACIC AORTA: There is uncomplicated ascending thoracic aortic aneurysm measuring 4 cm. No dissecti on or mediastinal hematoma. Mild atheromatous changes are seen. LUNGS: The lungs are clear and free of infiltrate or atelectasis. No pulmonary nodule or mass is det ected. No pleural effusion or CT evidence of interstitial lung disease. MEDIASTINUM: The heart is enlarged. No evidence for mediastinal mass or adenopathy. HILAR STRUCTURES: No evidence for mass. No hilar adenopathy is appreciated. OTHER: No significant abnormality. CONTRAST CT ABDOMEN AND PELVIS ABDOMENAL AORTA: No evidence for abdominal aortic aneurysm. No dissection. Iliac vessels are symmet maria elena and patent. LIVER/GB- No significant abnormality is seen. PANCREAS- No significant abnormality is seen. SPLEEN- No significant abnormality is seen. ADRENALS- No significant abnormality is seen. KIDNEYS/BLADDER- No significant abnormality is seen. BOWEL- No Significant abnormality GENITAL ORGANS: No gross abnormality seen. LYMPH NODES- No greater than 1cm abdominal or pelvic lymph nodes areappreciated. OSSEOUS STRUCTURES- No significant abnormality is seen. OTHER- No significant abnormality is seen. IMPRESSION- uncomplicated ascending thoracic aortic aneurysm measuring 4 cm.
--- NOTE | 2020-09-17 15:36 | US ---
EXAMINATION TYPE: US gallbladder DATE OF EXAM: 09/17/2020 COMPARISON: CTA aorta earlier today CLINICAL HISTORY: ab pain. Abdomen pain. EXAM MEASUREMENTS: Liver Length: 18.5 cm Gallbladder Wall: 0.2 cm CBD: 0.5 cm Right Kidney: 11.8 x 6.4 x 6.6 cm Pancreas: Obscured by bowel gas Liver: Upper limits of normal in size Gallbladder: wnl Evidence for sonographic Cornelius's sign: neg CBD: wnl Right Kidney: Cortical echogenic focus= 0.6 x 0.7 cm Suboptimal evaluation of pancreas on initial images, the pancreas appeared within normal limits on re cent CT. Visualized liver is diffusely hyperechoic consistent with diffuse fatty infiltration. Gallbl adder seen without intraluminal gallstones. No hydronephrosis in the right kidney. Technologist calvo 7 mm nonspecific nonshadowing hyperechoic focus mid to lower pole level, no obstructing calculus not ed on recent CT. IMPRESSION: No gallstones or ultrasound evidence for acute cholecystitis.
[2020-09-17] MEDS ORDERED: HEPARIN SODIUM,PORCINE 5,000 UNIT/ML 1 ML VIAL IV ONE (15:47)
[2020-09-17] MEDS ORDERED: ASPIRIN 325 MG TAB PO STA (15:47)
[2020-09-17] MEDS ORDERED: ACETAMINOPHEN TAB 325 MG TAB PO PRN (16:01)
[2020-09-17] MEDS ORDERED: NALOXONE 0.4 MG/ML 1 ML VIAL IV PRN (16:01)
[2020-09-17] MEDS ORDERED: NITROGLYCERIN SL TABS 0.4 MG TAB SUBLINGUAL PRN (16:03)
[2020-09-17] MEDS: HEPARIN SOD,PORK IN 0.45% NACL 25,000 UNIT in 0.45% NACL 1 250ML.BAG IV SCH (16:09)
[2020-09-17] MEDS: MORPHINE SULFATE 4 MG/ML SYRINGE IV PRN ×2 (16:52→20:27)
[2020-09-17] MEDS: HEPARIN SODIUM,PORCINE 5,000 UNIT/ML 1 ML VIAL IV PRN (23:05)
[2020-09-18 06:23] LABS: Basophils # (A) 0.1 k/uL (0-0.2); Basophils % (A) 1 %; Eosinophils # (A) 0.4 k/uL (0-0.7); Eosinophils % (A) 6 %; HCT 45.9 % (39.0-53.0); HGB 15.4 gm/dL (13.0-17.5); Lymphocytes # (A) 1.5 k/uL (1.0-4.8); Lymphocytes % (A) 21 %; MCH 31.5 pg (25.0-35.0); MCHC 33.5 g/dL (31.0-37.0); MCV 94.2 fL (80.0-100.0); Mean Platelet Volume 8.2; Monocytes # (A) 0.3 k/uL (0-1.0); Monocytes % (A) 5 %; Neutrophils # (A) 4.7 k/uL (1.3-7.7); Neutrophils % (A) 67 %; Platelet Count 198 k/uL (150-450); RBC 4.88 m/uL (4.30-5.90); RDW 12.7 % (11.5-15.5); WBC 7.1 k/uL (3.8-10.6)
[2020-09-18] MEDS: HEPARIN SODIUM,PORCINE 5,000 UNIT/ML 1 ML VIAL IV PRN ×2 (06:42→14:24)
[2020-09-18 09:56] VITALS: RESP 16
--- NOTE | 2020-09-18 10:29 | P.CRDCN ---
History of Present Illness History of present illness: HISTORY OF PRESENTING ILLNESS This is a pleasant 60-year-old male past medical history significant for chronic persistent atrial fibrillation status post ablation and cardioversion and hypertension. He follows in the office with Dr. Rucker. We have been asked to see in consultation for chest pain. He states yesterday after eating he had an intense episode of very sharp pain in the epigastric region. The discomfort radiated through to his back. He had some associated nausea but no vomiting. He denies dizziness, palpitations or shortness of breath. The pain started around noontime and lasted until last night at 2030. He has been pain free since that time. No reproducibility on exam. He states he does take meloxicam daily for arthritis and chronic knee pain. DIAGNOSTICS EKG reveals atrial fibrillation with controlled ventricular rates with no ST changes. Chest xray negative for an acute cardiopulmonary process. CT of the thoracic aorta reveals an uncomplicated descending thoracic aortic aneurysm measuring 4 cm. Ultrasound of the gallbladder is unremarkable. Laboratory reviewed, CBC unremarkable, sodium 138, potassium 3.8, creatinine 1.03, magnesium 1.8, cardiac enzymes negative x3, proBNP 383. Current cardiac medications include amlodipine/benazapril 5/10mg daily. REVIEW OF SYSTEMS At the time of my exam: CONSTITUTIONAL: Denies fever or chills. CARDIOVASCULAR: Denies chest pain, shortness of breath, orthopnea, PND or palpitations. RESPIRATORY: Denies cough. GASTROINTESTINAL: Denies abdominal pain, diarrhea, constipation, nausea or vomiting. MUSCULOSKELETAL: Denies myalgias. NEUROLOGIC: Denies numbness, tingling or weakness. ENDOCRINE: Denies fatigue, weight change, polydipsia or polyurina. GENITOURINARY: Denies burning, hematuria or urgency with micturation. HEMATOLOGIC: Denies history of anemia or bleeding. PHYSICAL EXAMINATION Blood pressure 156/99 heart rate 55 afebrile and maintaining oxygen saturation on room air. CONSTITUTIONAL: No apparent distress. HEENT: Head is normocephalic. Pupils are equal, round. Sclerae anicteric. Mucous membranes of the mouth are moist. No JVD. No carotid bruit. CHEST EXAMINATION: Lungs are clear to auscultation. No chest wall tenderness is noted on palpation or with deep breathing. HEART EXAMINATION: Irregular rate and rhythm. S1, S2 heard. No murmurs, gallops or rub. ABDOMEN: Soft, nontender. Positive bowel sounds. EXTREMITIES: 2+ peripheral pulses, no lower extremity edema and no calf tende rness. NEUROLOGIC EXAMINATION: Patient is awake, alert and oriented x3. ASSESSMENT Epigastric pain, atypical for angina. Consider mesenteric ischemic or possible ulcer Chronic persistent atrial fibrillation, has not been compliant with eliquis for the past 1-yr Hypertension PLAN An acute coronary event has been ruled out. Pain is atypical for angina. Sounds more GI etiology. Obtain 2D echocardiogram and doppler study to assess cardiac structure and function. Check lactic acid. Recommend GI evaluation. We will check the cost of eliquis 5 mg BID and transition to oral anti- coagulation pending GI evaluation and recommendations. Hgb stable. No further cardiac work-up at this time. Follow up with Dr. Rucker upon discharge. Thank you kindly for this consultation. Nurse Practitioner note has been reviewed, I agree with a documented findings and plan of care. Patient was seen and examined. Past Medical History Past Medical History: Atrial Fibrillation, Hypertension History of Any Multi-Drug Resistant Organisms: None Reported Past Surgical History: Appendectomy, Heart Catheterization Additional Past Surgical History / Comment(s): dami knee, right shoulder, left ankle Past Psychological History: No Psychological Hx Reported Smoking Status: Never smoker Past Alcohol Use History: Occasional Past Drug Use History: None Reported - Past Family History Father Family Medical History: Myocardial Infarction (MD) Additional Family Medical History / Comment(s): cardiac arrest Mother Family Medical History: CVA/TIA Medications and Allergies Home Medications Medication Instructions Recorded Confirmed Type Meloxicam 15 mg PO QAM 04/20/18 09/17/20 History Aspirin 325 mg PO DAILY 09/17/20 09/17/20 History amLODIPine BESYLATE/BENAZEPRIL 1 tab PO DAILY 09/17/20 09/17/20 History [amLODIPine BESYLATE/BENAZEPRIL 5-10 MG] Apixaban [Eliquis] 5 mg PO BID #60 tab 09/18/20 Rx Allergies Allergy/AdvReac Type Severity Reaction Status Date / Time No Known Allergies Allergy Verified 09/17/20 16:41 Physical Exam Vitals: Vital Signs Temp Pulse Pulse Resp BP BP Pulse Ox 09/18/20 04:16 98.0 F 73 135/90 98 09/18/20 04:05 73 09/17/20 20:05 97.8 F 73 145/88 100 09/17/20 18:15 64 18 09/17/20 17:19 64 18 139/92 99 09/17/20 16:54 97 F L 78 18 124/98 100 09/17/20 16:45 78 18 124/98 100 09/17/20 15:54 56 L 18 125/86 99 09/17/20 13:52 69 18 125/94 97 09/17/20 13:30 97 F L 74 18 125/90 95 Intake and Output 09/17/20 09/18/20 09/18/20 22:59 06:59 14:59 Intake Total 0 167.855 Balance 0 167.855 Intake: Intake, IV Titration 167.855 Amount Heparin Sod,Pork in 0.45% 167.855 NaCl 25,000 unit In 0.45 % NaCl 1 250ml.bag @ 10. 021 UNITS/KG/HR 10 mls/hr IV .Q24H [facility] Rx#: [id number] Oral 0 Other: # Voids 1 Weight 99.79 kg Results 09/18/20 05:58 09/17/20 13:31 Cardiac Enzymes 09/17/20 09/17/20 09/17/20 Range/Units 13:31 13:31 Unknown AST 26 (17-59) U/L Troponin I <0.012 0.013 (0.000-0.034) ng/mL 09/18/20 Range/Units 02:19 AST (17-59) U/L Troponin I <0.012 (0.000-0.034) ng/mL Coagulation 09/17/20 09/17/20 09/18/20 Range/Units 13:31 21:25 05:58 PT 10.5 (9.0-12.0) sec APTT 21.2 L 27.5 33.9 H (22.0-30.0) sec CBC 09/17/20 09/18/20 Range/Units 13:31 05:58 WBC 9.8 7.1 (3.8-10.6) k/uL RBC 5.12 4.88 (4.30-5.90) m/uL Hgb 16.5 15.4 (13.0-17.5) gm/dL Hct 47.4 45.9 (39.0-53.0) % Plt Count 246 198 (150-450) k/uL Comprehensive Metabolic Panel 09/17/20 Range/Units 13:31 Sodium 138 (137-145) mmol/L Potassium 3.8 (3.5-5.1) mmol/L Chloride 103 (98-107) mmol/L Carbon Dioxide 26 (22-30) mmol/L BUN 19 (9-20) mg/dL Creatinine 1.03 (0.66-1.25) mg/dL Glucose 220 H (74-99) mg/dL Calcium 9.2 (8.4-10.2) mg/dL AST 26 (17-59) U/L ALT 25 (4-49) U/L Alkaline Phosphatase 85 (38-126) U/L Total Protein 7.3 (6.3-8.2) g/dL Albumin 4.3 (3.5-5.0) g/dL Current Medications Generic Name Dose Route Start Last Admin Trade Name Freq PRN Reason Stop Dose Admin Acetaminophen 650 mg 09/17/20 16:01 Acetaminophen Tab 325 Mg Tab PO Q6HR PRN Mild Pain or Fever > 100.5 Heparin Sodium (Porcine) 0 unit 09/17/20 15:47 09/18/20 06:42 Heparin Sodium,Porcine 5,000 Unit/Ml 1 Ml Vial IV 4,000 unit PER PROTOCOL PRN Administration Low PTT Protocol Heparin Sodium/Sodium Chloride 250 mls @ 10 mls/hr 09/17/20 16:00 09/18/20 06:39 25,000 unit/ Sodium Chloride IV 16.021 units/kg/hr .Q24H AB 15.987 mls/hr Titration Protocol 10.021 UNITS/KG/HR Morphine Sulfate 4 mg 09/17/20 16:01 09/17/20 20:27 Morphine Sulfate 4 Mg/Ml Syringe IV 4 mg Q4HR PRN Administration Severe Pain Naloxone HCl 0.2 mg 09/17/20 16:01 Naloxone 0.4 Mg/Ml 1 Ml Vial IV Q2M PRN Opioid Reversal Nitroglycerin 0.4 mg 09/17/20 16:03 Nitroglycerin Sl Tabs 0.4 Mg Tab SUBLINGUAL Q5M PRN Chest Pain Intake and Output 09/17/20 09/18/20 09/18/20 22:59 06:59 14:59 Intake Total 0 167.855 Balance 0 167.855 Intake: Intake, IV Titration 167.855 Amount Heparin Sod,Pork in 0.45% 167.855 NaCl 25,000 unit In 0.45 % NaCl 1 250ml.bag @ 10. 021 UNITS/KG/HR 10 mls/hr IV .Q24H [facility] Rx#: [id number] Oral 0 Other: # Voids 1 Weight 99.79 kg 09/18/20 05:58 09/17/20 13:31
[2020-09-18] MEDS ORDERED: MELOXICAM 7.5 MG TAB PO SCH (11:00)
[2020-09-18] MEDS ORDERED: ASPIRIN 325 MG TAB PO SCH (11:00)
[2020-09-18] MEDS: lisinopriL 10 MG TAB PO SCH (11:29)
[2020-09-18] MEDS: amLODIPine 5 MG TAB PO SCH (11:29)
[2020-09-18] MEDS: HEPARIN SOD,PORK IN 0.45% NACL 25,000 UNIT in 0.45% NACL 1 250ML.BAG IV SCH (14:21)
--- NOTE | 2020-09-18 17:11 | CONS ---
CONSULTATION DATE OF DICTATION: 09/18/2020 REASON FOR CONSULTATION: Epigastric pain. HISTORY OF PRESENT ILLNESS: The patient is a 60-year-old pleasant white male admitted to the hospital with severe epigastric and lower sternal chest pain that started an hour before coming to the emergency room. Pain lasted for almost an hour. He had no associated heartburn. No diaphoresis. He reports no nausea or vomiting. He had 3 of these similar episodes that happened in the last one month, each lasting for an hour or two, and then subsided. He has history of atrial fibrillation but currently not on any anticoagulation. Cardiology has been consulted and cardiac workup so far has been negative. Because of the atrial fibrillation he is currently on IV heparin, and we are consulted for possible upper endoscopy. The patient denies any prior history of peptic ulcer disease. He has been taking meloxicam 15 mg daily for the last 3 years for joint pains. PAST MEDICAL HISTORY: Atrial fibrillation and degenerative joint disease. MEDICATIONS AT HOME: Meloxicam. ALLERGIES: NO KNOWN DRUG ALLERGIES. SOCIAL HISTORY: No smoking. No alcohol use. PAST SURGICAL HISTORY: Bilateral knee surgeries, right shoulder surgery, left ankle surgery, appendectomy, cardiac catheterization. FAMILY HISTORY: Father had coronary artery disease. REVIEW OF SYSTEMS: CARDIOPULMONARY: He did have chest pain but is currently asymptomatic. No shortness of breath. GENITOURINARY: No dysuria or hematuria. MUSCULOSKELETAL: Unremarkable. SKIN: Unremarkable. ENDOCRINE: Unremarkable. PSYCHIATRIC: Unremarkable. NEUROLOGY: Unremarkable. ENT/VISION: Unremarkable. CONSTITUTIONAL: No recent weight loss. No fever, chills, night sweats. PHYSICAL EXAMINATION: Blood pressure 156/99, pulse rate 55, temperature 97.6. HEENT examination unremarkable. Conjunctivae pink. Sclerae anicteric. Oral cavity no lesions. NECK: No JVD or lymph node enlargement. CHEST: Clear to auscultation. HEART: Regular rate and rhythm. ABDOMEN: Soft. There was mild tenderness in the epigastric area. Rest of the abdomen was benign. Bowel sounds are positive. No organomegaly. EXTREMITIES: No pedal edema. NEUROLOGIC: Alert and oriented x3. No focal deficits. LABS/IMAGING: WBC 9.8, hemoglobin 16.5, platelets normal. Basic metabolic panel is within normal limits. BUN and creatinine are normal. Lipase is normal. ALT, AST, T-bilirubin and alkaline phosphatase are normal. Ultrasound of the gallbladder showed no evidence of gallstones. IMPRESSION: 1. Lower sternal chest pain/epigastric pain that started yesterday and is currently resolved. Cardiac workup so far has been negative. Possibility of upper GI pathology/peptic ulcer disease needs to be considered because of the long-term use of meloxicam for degenerative joint disease. The patient has been having intermittent episodes of chest pain for the last 3 weeks. 2. Atrial fibrillation, presently on IV heparin. RECOMMENDATIONS: 1. Start empirically on Protonix 40 mg daily. 2. Will proceed with an upper endoscopy tomorrow. Discussed with the patient risks, benefits and complications of the procedure, and he is agreeable to it. 3. Will hold off the heparin for 4 hours prior to the planned endoscopy. Will follow with you closely. Thank you for this consultation. MMODL / IJN: [id number] /
--- NOTE | 2020-09-18 20:09 | P.HPIM ---
History of Present Illness H&P Date: 09/18/20 Chief Complaint: Chest pressure History of presenting complaint: This is a pleasant 60-year-old patient of Dr. Ramirez. Chronic stable medical conditions include atrial fibrillation, hypertension, GERD. Patient presents with chest pressure. He's had these episodes at least 3 times in the last 3 weeks. Yesterday's episode was much more protracted. Yesterday he developed pressure in the lower end of [place] sternum that progressed from good 10 hours. Did not radiate. Patient was dizzy was sweating profusely. Decided to come in was admitted with a diagnosis of unstable angina. Patient is also been having increasing reflux symptoms. Patient had a cardiac catheterization is negative close to 10 years ago. Patient has not been taking his eliquis. Patient also noticed some bloating in the abdomen. Review of systems: GEN.: None EYES: None HEENT: None NECK: None RESPIRATORY: None CARDIOVASCULAR: As above GASTROINTESTINAL: As above GENITOURINARY: None MUSCULOSKELETAL: None LYMPHATICS: None HEMATOLOGICAL: None PSYCHIATRY: None NEUROLOGICAL: None Past medical history to include: Atrial fibrillation, hypertension, GERD Social history: Does not smoke. Alcohol occasionally. Works at a [employer] Physical examination: VITAL SIGNS: 97, 74, 18, 125/90, 95% on 2 L-on presentation GENERAL: BMI 32.5, reclining in bed, not in distress. EYES: Pupils equal. Conjunctiva normal. HEENT: External appearance of nose and ears normal, oral cavity grossly normal. NECK: JVD not raised; masses not palpable. HEART: First and second heart sounds are normal; no edema. LUNGS: Respiratory rate normal; clear to auscultation. ABDOMEN: Soft, nontender, liver spleen not palpable, no masses palpable. PSYCH: Alert and oriented x3; mood and affect normal. NEUROLOGICAL: Cranial nerves grossly intact; no facial asymmetry, power and sensation grossly intact. LYMPHATICS: No lymph nodes palpable in the axilla and neck INVESTIGATIONS, reviewed in the clinical context: White count 9.8 hemoglobin 16.5 platelets 246 potassium 3.8 creatinine 1.03 Troponin I 3 negative EKG tracing personally reviewed by me-atrial fibrillation rate 74 Gallbladder ultrasound-diffuse fatty infiltration of the liver. Thoracic aorta CT-uncomplicated ascending thoracic ANEURYSM 4 cm Chest x-ray film personally reviewed by me-cardiomegaly, poor penetration Assessment: -Unstable angina in a patient his factors include hypertension, obesity -Persistent atrial fibrillation for which patient is supposed to be taking eliquis has not been taking the same -GERD worsening -Possible peptic ulcer disease given that the patient is on meloxicam and aspirin may be responsible for his symptoms. -Obesity BMI 32.5 Plan: Cardiology was consulted. Patient put on IV heparin. Add PPI in Tums. GI was consulted. Care was discussed with the patient. Questions answered. Past Medical History Past Medical History: Atrial Fibrillation, Hypertension History of Any Multi-Drug Resistant Organisms: None Reported Past Surgical History: Appendectomy, Heart Catheterization Additional Past Surgical History / Comment(s): dami knee, right shoulder, left ankle Past Psychological History: No Psychological Hx Reported Smoking Status: Never smoker Past Alcohol Use History: Occasional Past Drug Use History: None Reported - Past Family History Father Family Medical History: Myocardial Infarction ([place]) Additional Family Medical History / Comment(s): cardiac arrest Mother Family Medical History: CVA/TIA Medications and Allergies Home Medications Medication Instructions Recorded Confirmed Type Meloxicam 15 mg PO QAM 04/20/18 09/17/20 History Aspirin 325 mg PO DAILY 09/17/20 09/17/20 History amLODIPine BESYLATE/BENAZEPRIL 1 tab PO DAILY 09/17/20 09/17/20 History [amLODIPine BESYLATE/BENAZEPRIL 5-10 MG] Apixaban [Eliquis] 5 mg PO BID #60 tab 09/18/20 Rx Allergies Allergy/AdvReac Type Severity Reaction Status Date / Time No Known Allergies Allergy Verified 09/17/20 16:41 Physical Exam Vitals: Vital Signs Temp Pulse Pulse Resp BP BP Pulse Ox 09/18/20 09:00 55 L 16 09/18/20 08:40 97.6 F 55 L 16 156/99 98 09/18/20 04:16 98.0 F 73 135/90 98 09/18/20 04:05 73 09/17/20 20:05 97.8 F 73 145/88 100 09/17/20 18:15 64 18 09/17/20 17:19 64 18 139/92 99 09/17/20 16:54 97 F L 78 18 124/98 100 09/17/20 16:45 78 18 124/98 100 09/17/20 15:54 56 L 18 125/86 99 09/17/20 13:52 69 18 125/94 97 09/17/20 13:30 97 F L 74 18 125/90 95 Intake and Output 09/17/20 09/18/20 09/18/20 22:59 06:59 14:59 Intake Total 0 167.855 Balance 0 167.855 Intake: Intake, IV Titration 167.855 Amount Heparin Sod,Pork in 0.45% 167.855 NaCl 25,000 unit In 0.45 % NaCl 1 250ml.bag @ 10. 021 UNITS/KG/HR 10 mls/hr IV .Q24H AB Rx#: [id number] Oral 0 Other: Voiding Method Toilet # Voids 1 1 Weight 99.79 kg Results CBC & Chem 7: 09/18/20 05:58 09/17/20 13:31 Labs: Abnormal Lab Results - Last 24 Hours (Table) 09/17/20 09/17/20 09/18/20 Range/Units 13:31 13:31 05:58 APTT 21.2 L 33.9 H (22.0-30.0) sec Glucose 220 H (74-99) mg/dL Thrombosis Risk Factor Assmnt - Choose All That Apply Each Factor Represents 1 point: Age 41-60 years Thrombosis Risk Factor Assessment Total Risk Factor Score: 1 Thrombosis Risk Factor Assessment Level: Low Risk
[2020-09-18] MEDS: PANTOPRAZOLE 40 MG TABLET PO SCH (21:21)
[2020-09-18] MEDS: CALCIUM CARBONATE LIQUID 500 MG/5 ML CUP PO SCH (21:25)
[2020-09-19] MEDS: PANTOPRAZOLE 40 MG TABLET PO SCH (06:41)
[2020-09-19] MEDS: CALCIUM CARBONATE LIQUID 500 MG/5 ML CUP PO SCH ×2 (06:41→13:01)
[2020-09-19] MEDS: amLODIPine 5 MG TAB PO SCH (07:35)
[2020-09-19] MEDS: lisinopriL 10 MG TAB PO SCH (07:35)
--- NOTE | 2020-09-19 07:50 | ECHOF ---
Referral Reason: MEASUREMENTS -------- HEIGHT: 175.3 cm WEIGHT: 99.8 kg BP: RVIDd: 3.7 cm (< 3.3) IVSd: 1.4 cm (0.6 - 1.1) LVIDd: 3.9 cm (3.9 - 5.3) LVPWd: 1.3 cm (0.6 - 1.1) IVSs: 1.7 cm LVIDs: 2.6 cm LVPWs: 1.4 cm LAESV Index (A-L): 47.76 ml/m Ao Diam: 3.2 cm (2.0 - 3.7) AV Cusp: 1.7 cm (1.5 - 2.6) LA Diam: 4.4 cm (2.7 - 3.8) MV EXCURSION: 20.694 mm (> 18.000) MV EF SLOPE: 118 mm/s (70 - 150) EPSS: 0.5 cm RAP: 5.00 mmHg RVSP: 39.29 mmHg FINDINGS -------- Atrial fibrillation. This was a technically adequate study. The left ventricular size is normal. There is mild concentric left ventricular hypertrophy. Overa ll left ventricular systolic function is low-normal with, an EF between 50 - 55 %. The right ventricle is normal in size. LA is moderately dilated 34-39 ml/m2 The right atrial size is normal. The aortic valve is trileaflet, and appears structurally normal. No aortic stenosis or regurgitation. Mild mitral regurgitation is present. Mild tricuspid regurgitation present. There is mild pulmonary hypertension. There is no pulmonic regurgitation present. The aortic root size is normal. Echo free space represents a pericardial fat pad. CONCLUSIONS -------- 1. The left ventricular size is normal. 2. There is mild concentric left ventricular hypertrophy. 3. Overall left ventricular systolic function is low-normal with, an EF between 50 - 55 %. 4. The right ventricle is normal in size. 5. LA is moderately dilated 34-39 ml/m2 6. The right atrial size is normal. 7. Mild mitral regurgitation is present. 8. Mild tricuspid regurgitation present. 9. There is mild pulmonary hypertension. 10. The aortic root size is normal. 11. Echo free space represents a pericardial fat pad. ENTERPRISE APPLICATION DEVELOPER: Leatha Landin RDCS
[2020-09-19 08:20] LABS: Basophils # (A) 0.1 k/uL (0-0.2); Basophils % (A) 1 %; Eosinophils # (A) 0.4 k/uL (0-0.7); Eosinophils % (A) 7 %; HGB 16.6 gm/dL (13.0-17.5); Lymphocytes # (A) 1.7 k/uL (1.0-4.8); Lymphocytes % (A) 27 %; MCH 31.8 pg (25.0-35.0); MCHC 34.7 g/dL (31.0-37.0); MCV 91.7 fL (80.0-100.0); Mean Platelet Volume 8.3; Monocytes # (A) 0.3 k/uL (0-1.0); Monocytes % (A) 5 %; Neutrophils # (A) 3.6 k/uL (1.3-7.7); Neutrophils % (A) 59 %; Platelet Count 224 k/uL (150-450); RBC 5.23 m/uL (4.30-5.90); WBC 6.1 k/uL (3.8-10.6)
[2020-09-19 08:43] VITALS: TEMP 97.6
[2020-09-19] MEDS ORDERED: ASPIRIN 81 MG PO SCH (09:00)
[2020-09-19] MEDS ORDERED: LIDOCAINE 1% INJ 10MG/ML (20 ML MDV) ONE (12:18)
[2020-09-19] MEDS ORDERED: IV FLUID CONTINUATION 1,000 ML IV ONE (12:18)
[2020-09-19] MEDS ORDERED: PROPOFOL 10 MG/ML 20 ML VIAL IV ONE (12:18)
--- NOTE | 2020-09-19 12:26 | P.PCN ---
Date of Procedure: 09/19/20 Procedure(s) Performed: BRIEF HISTORY: Patient is a 60-year-old, pleasant, white male admitted hospital with acute onset of severe epigastric and chest pain for the last 2 days. He had been having intermittent episodes for the last 1 month duration. Cardiac workup has been negative.. PROCEDURE PERFORMED: Esophagogastroduodenoscopy with biopsy. PREOPERATIVE DIAGNOSIS: Epigastric/chest pain. IV sedation per anesthesia. PROCEDURE: After informed consent was obtained, the patient was brought into the endoscopy unit. IV sedation was administered by Anesthesia under continuous monitoring. Initially the Olympus GIF-140 video endoscope was inserted into the mouth. Esophagus intubated without any difficulty. It was gradually advanced into the stomach and duodenum and carefully examined. The bulb and the second part of the duodenum appeared normal. The scope at this time was withdrawn to the stomach, adequately insufflated with air, and upon careful examination, mucosa of the antrum, had scattered erosions and biopsies were done from this area. The body, cardia and the fundus appeared normal. The scope was then withdrawn into the esophagus. The GE junction was located at 45 cm from the incisors. There was once a fissure erosions and ulceration at the GE junction consistent with LA grade C reflux esophagitis. The rest of the esophagus appeared normal. The patient tolerated the procedure well. IMPRESSION: 1. One superficial erosion with ulceration at the GE junction consistent with LA grade C reflux esophagitis. 2.. Antral Erosive gastritis. RECOMMENDATIONS: The findings of this examination were discussed with the patient . His symptoms are related to gastroesophageal reflux and was advised to follow with the biopsy results. Continue Protonix 40 mg daily. Anticoagulation can be resumed now.
[2020-09-19 13:50] VITALS: PULSE 87
[2020-09-19 14:06] VITALS: BP 135/87
--- NOTE | 2020-09-19 23:14 | P.DS ---
Providers Date of admission: 09/17/20 16:01 Expected date of discharge: 09/19/20 Attending physician: Antwan Sunshine Consults: 09/17/20 16:02 Consult Physician Routine Consulting Provider: Shane Dunne Consult Reason/Comments: Unstable angina Do you want consulting provider notified?: Yes 09/18/20 10:16 Consult Physician Routine Consulting Provider: Luis Carlos Evans Consult Reason/Comments: epigastric pain Do you want consulting provider notified?: Yes Primary care physician: Gerard Franzmary beth [facility] Course: Chief Complaint: Chest pressure History of presenting complaint: This is a pleasant 60-year-old patient of Dr. Ramirez. Chronic stable medical conditions include atrial fibrillation, hypertension, GERD. Patient presents with chest pressure. He's had these episodes at least 3 times in the last 3 weeks. Yesterday's episode was much more protracted. Yesterday he developed pressure in the lower end of [place] sternum that progressed from good 10 hours. Did not radiate. Patient was dizzy was sweating profusely. Decided to come in was admitted with a diagnosis of unstable angina. Patient is also been having increasing reflux symptoms. Patient had a cardiac catheterization is negative close to 10 years ago. Patient has not been taking his eliquis. Patient also noticed some bloating in the abdomen. Patient was seen by cardiology. Not felt to be cardiac. Underwent EGD.-Some esophagitis and gastritis. Started on PPI. Patient put back on eliquis for his A. fib-rate controlled. care was discussed with the patient. Questions answered. Follow-up discussed. Meloxicam discontinued. Discussion and discharge planning more than 35 minutes [employer]: Dr. Andrade Sy from GI Dr. Simmons from cardiology Physical examination: VITAL SIGNS: Afebrile, 87, 16, 11/04/1991, 95% room air GENERAL: BMI 32.5, reclining in bed, not in distress. EYES: Pupils equal. Conjunctiva normal. NECK: JVD not raised; masses not palpable. HEART: First and second heart sounds are normal; no edema. LUNGS: Respiratory rate normal; clear to auscultation. ABDOMEN: Soft, nontender, liver spleen not palpable, no masses palpable. PSYCH: Alert and oriented x3; mood and affect normal. INVESTIGATIONS, reviewed in the clinical context: September 19: White count 6.1 hemoglobin 16.6 EGD- esophagitis, gastritis White count 9.8 hemoglobin 16.5 platelets 246 potassium 3.8 creatinine 1.03 Troponin I 3 negative EKG tracing personally reviewed by me-atrial fibrillation rate 74 Gallbladder ultrasound-diffuse fatty infiltration of the liver. Thoracic aorta CT-uncomplicated ascending thoracic ANEURYSM 4 cm Chest x-ray film personally reviewed by me-cardiomegaly, poor penetration 2-D echocardiogram-EF 50-55% Assessment: -Chest pain could be from esophageal spasm from reflux -Persistent atrial fibrillation for which patient is supposed to be taking eliquis has not been taking the same. Resumed -GERD worsening -Esophagitis and gastritis, from NSAID and GERD -Obesity BMI 32.5 Disposition: Home Patient Condition at Discharge: Stable Plan - Discharge Summary Discharge Rx Participant: Yes New Discharge Prescriptions: New Apixaban [Eliquis] 5 mg PO BID #60 tab Nitroglycerin Sl Tabs [Nitrostat] 0.4 mg SUBLINGUAL Q5M PRN #25 tab PRN Reason: Chest Pain Pantoprazole [Protonix] 40 mg PO AC-BID #60 tablet. Continue Aspirin 325 mg PO DAILY amLODIPine BESYLATE/BENAZEPRIL [amLODIPine BESYLATE/BENAZEPRIL 5-10 MG] 1 tab PO DAILY Discontinued Meloxicam 15 mg PO QAM Discharge Medication List Aspirin 325 mg PO DAILY 09/17/20 [History] amLODIPine BESYLATE/BENAZEPRIL [amLODIPine BESYLATE/BENAZEPRIL 5-10 MG] 1 tab PO DAILY 09/17/20 [History] Apixaban [Eliquis] 5 mg PO BID #60 tab 09/18/20 [Rx] Nitroglycerin Sl Tabs [Nitrostat] 0.4 mg SUBLINGUAL Q5M PRN #25 tab 09/19/20 [Rx] Pantoprazole [Protonix] 40 mg PO AC-BID #60 tablet. 09/19/20 [Rx] Follow up Appointment(s)/Referral(s): Angel Ramirez MD [Primary Care Provider] - 1-2 days Maicol Simmons DO [STAFF PHYSICIAN] - 3 Weeks Stacey Sy MD [STAFF PHYSICIAN] - 3 Weeks
== END 2020-09-19 15:07 ==
LOC: EC 13:30 → 1SOBS 16:01
PROVIDERS: ADMIT Hospitalist; ATTEND Hospitalist
DX: R07.89 Other chest pain (principal); K21.00 Gastro-esophageal reflux disease with esophagitis, without bleeding; K29.60 Other gastritis without bleeding; K25.9 Gastric ulcer, unspecified as acute or chronic, without hemorrhage or perforation; I11.9 Hypertensive heart disease without heart failure; I48.19 Other persistent atrial fibrillation; T45.516A Underdosing of anticoagulants, initial encounter; T39.395A Adverse effect of other nonsteroidal anti-inflammatory drugs [NSAID], initial encounter; R61 Generalized hyperhidrosis; R42 Dizziness and giddiness; R14.0 Abdominal distension (gaseous); E66.9 Obesity, unspecified; Z68.32 Body mass index [BMI] 32.0-32.9, adult; G89.29 Other chronic pain; M19.90 Unspecified osteoarthritis, unspecified site; M25.569 Pain in unspecified knee; I71.2 Thoracic aortic aneurysm, without rupture; K76.0 Fatty (change of) liver, not elsewhere classified; Z90.49 Acquired absence of other specified parts of digestive tract; Z87.891 Personal history of nicotine dependence; Z79.01 Long term (current) use of anticoagulants; Z79.1 Long term (current) use of non-steroidal anti-inflammatories (NSAID); Z79.82 Long term (current) use of aspirin; Z82.41 Family history of sudden cardiac death; Z82.49 Family history of ischemic heart disease and other diseases of the circulatory system; Z82.3 Family history of stroke
CPT/HCPCS: 96366 ×2; 96376 ×3; 96365; 96375; 99291; 36415; 93005; 93306; 88305; 83880; 80053; 83605; 83690; 83735; 84484 ×2; 85025 ×3; 85610; 85730 ×3; 88342; 71045; 76705; 71275; 74174; 43239; G0378 ×3; J2270; J1644 ×4; J2001; J2704; Q9967